=== PATIENT | female | born 1985 | race American Indian/Alaskan Native ===

== ENCOUNTER 2018-05-01 18:41 | Emergency (ER) | payer OTHER ==
[~2018-05-01] VITALS: Ht 162.6 cm; Wt 54.0 kg
[2018-05-02] MEDS ORDERED: ZOFRAN4 MG PO (01:35)
[2018-05-02] MEDS ORDERED: PROTONIX40 MG PO (01:35)
== END 2018-05-02 01:46 | disposition home or self-care (01) ==
LOC: ER 18:41
DX: K21.9 Gastro-esophageal reflux disease without esophagitis (principal)